=== PATIENT | male | born 1985 | race African-American/Black ===

== ENCOUNTER 2018-04-20 13:10 | Emergency (ER) | payer OTHER ==
--- NOTE | 2018-04-20 15:58 | ER Document Report ---
ED Extremity Problem, Lower - General Mode of Arrival: Ambulatory Information source: Patient TRAVEL OUTSIDE OF THE [place] IN LAST 30 DAYS: No - General Chief Complaint: Leg Pain Stated Complaint: LEG PAIN Time Seen by Provider: 04/20/18 15:49 Notes: Patient is a 32-year-old female who presents to the emergency department today with complaints of left medial calf pain. Patient was at the [facility] and was sent here for an I&D however this area has been there for 2-1/2 months after a trauma (falling through porch). Patient denies fevers. (ABIOLA HEATH) - Related Data Allergies/Adverse Reactions: No Known Allergies Allergy (Verified 04/20/18 13:11) Past Medical History - General Information source: Patient - Social History Smoking Status: Never Smoker Cigarette use (# per day): No Chew tobacco use (# tins/day): No Frequency of alcohol use: Occasional Drug Abuse: None Lives with: Family Family History: Reviewed & Not Pertinent Patient has suicidal ideation: No Patient has homicidal ideation: No - Medical History Medical History: Negative Renal/ Medical History: Denies: Hx Peritoneal Dialysis Surgical Hx: Negative Review of Systems - Review of Systems Constitutional: No symptoms reported EENT: No symptoms reported Cardiovascular: No symptoms reported Respiratory: No symptoms reported Gastrointestinal: No symptoms reported Genitourinary: No symptoms reported Male Genitourinary: No symptoms reported Musculoskeletal: See HPI, Leg swelling - left calf Skin: No symptoms reported Hematologic/Lymphatic: No symptoms reported Neurological/Psychological: No symptoms reported -: Yes All other systems reviewed and negative Physical Exam - Vital signs Vitals: Temp Pulse Resp BP Pulse Ox 99.1 F 84 18 140/89 H 96 04/20/18 13:15 04/20/18 13:15 04/20/18 13:15 04/20/18 13:15 04/20/18 13:15 - Notes Notes: Physical Exam: General: Alert, appears well. HEENT: Normocephalic. Atraumatic. PERRLA. Extraocular movements intact. Oropharynx clear. Neck: Supple. Respiratory: No respiratory distress. Abdominal: Normal Inspection. No distension. Extremities: Left medial calf tenderness with palpation with small area of induration. No warmth or abscess formation. Neurological: Normal cognition. AAOx4. Normal speech. Psychological: Normal affect. Normal Mood. Skin: Warm. Dry. Normal color. (ABIOLA HEATH) Course - Re-evaluation Re-evalutation: 04/20/18 18:56 Patient's ultrasound shows hyperdynamic soft tissue area that most likely present scar tissue and which would be consistent with patient's history and physical. Will provide orthopedic referral. Anti-inflammatories provided (LISBET CRAIG) - Vital Signs Vital signs: Temp Pulse Resp BP Pulse Ox 99.1 F 72 18 121/67 100 04/20/18 13:15 04/20/18 19:42 04/20/18 19:42 04/20/18 19:42 04/20/18 19:42 Discharge - Discharge Clinical Impression: post trauma scar tissue of left calf Condition: Good Disposition: HOME, SELF-CARE Prescriptions: Naproxen 500 mg PO BID PRN #20 tablet PRN Reason: Referrals: CHRISTIANO SHANKAR DO [ACTIVE STAFF] - Follow up in 3-5 days Scribe Attestation: 04/24/18 14:58 I personally performed the services described documentation, reviewed and edited the documentation which was dictated to describe my presence, and it accurately records my words and actions. (LISBET CRAIG) Scribe Documentation - Scribe Written by Scribe:: Jacquelin Peña, 04/20/2018 1336 acting as scribe for :: Patric
--- NOTE | 2018-04-20 16:20 | RADIOLOGY REPORT (SQ) ---
EXAM DESCRIPTION: TIBIA FIBULA LEFT COMPLETED DATE/TIME: 04/20/2018 4:09 pm REASON FOR STUDY: leg knot COMPARISON: None. NUMBER OF VIEWS: Two views. TECHNIQUE: Two radiographic images acquired of the left tibia and fibula to include the knee and ank le in at least one projection. LIMITATIONS: None. FINDINGS: MINERALIZATION: Normal. BONES: No acute fracture or dislocation. No worrisome bone lesions. SOFT TISSUES: No obvious swelling or foreign body. OTHER: No other significant finding. IMPRESSION: NEGATIVE STUDY OF THE LEFT TIBIA AND FIBULA. NO RADIOGRAPHIC EVIDENCE OF ACUTE INJURY. TECHNICAL DOCUMENTATION: JOB ID: [id number] [employer]- All Rights Reserved Reading location - IP/workstation name: [email or web address]
--- NOTE | 2018-04-20 18:36 | RADIOLOGY REPORT (SQ) ---
EXAM DESCRIPTION: U/S EXTREMITY NONVASCULAR LTD COMPLETED DATE/TIME: 04/20/2018 6:19 pm REASON FOR STUDY: leg trauma, eval LLE calf muscle and enduration COMPARISON: None. TECHNIQUE: Dynamic and static grayscale images acquired of the localized site of clinical concern an d recorded on PACS. Additional selected color Doppler and spectral images recorded. SITE OF CONCERN: Left lower extremity calf LIMITATIONS: None. FINDINGS: SKIN AND SUBCUTANEOUS TISSUES: Small focal area of echo alteration measuring 1.6 x 1.2 x 0.6 cm that probably represents scar tissue. No definite acute findings. No hematoma or other postt raumatic change. DEEP SOFT TISSUES/MUSCLES: No masses. No fluid collections. No edema. VASCULAR: No increased or decreased vascularity. No occlusions. OTHER: No other significant finding. IMPRESSION: Small area of echo alteration that probably represents scar tissue. No acute findings. TECHNICAL DOCUMENTATION: JOB ID: [id number] [employer]- All Rights Reserved Reading location - IP/workstation name: [email or web address]
[2018-04-20 19:44] VITALS: BP 121/67
== END 2018-04-20 19:42 | disposition home or self-care (01) ==
LOC: ER 13:10
DX: M79.605 Pain in left leg (principal); Z87.828 Personal history of other (healed) physical injury and trauma
CPT/HCPCS: 76882; 99283

== ENCOUNTER 2019-03-20 21:05 | Observation (INO) | payer OTHER ==
[2019-03-20 22:24] LABS: ABSOLUTE BASOPHILS # (AUTO) 0.1 10^3/uL (0.0-0.2); ABSOLUTE EOSINOPHILS # (AUTO) 0.1 10^3/uL (0.0-0.6); ABSOLUTE LYMPHOCYTES (AUTO) 3.6 10^3/uL (0.5-4.7); ABSOLUTE MONOCYTES (AUTO) 1.2 10^3/uL (0.1-1.4); ABSOLUTE NEUT (AUTO) 9.1 10^3/uL (1.7-8.2); BASOPHILS % (AUTO) 0.4 % (0-2); EOSINOPHILS % (AUTO) 0.4 % (0-6); HEMATOCRIT 43.1 % (37.9-51.0); HEMOGLOBIN 14.2 g/dL (13.5-17.0); LYMPHOCYTES % (AUTO) 25.6 % (13-45); MEAN CORPUSCULAR HEMOGLOBIN 26.2 pg (27.0-33.4); MEAN CORPUSCULAR VOLUME 80 fl (80-97); MONOCYTES % (AUTO) 8.7 % (3-13); PLATELET COUNT 220 10^3/uL (150-450); RED BLOOD COUNT 5.42 10^6/uL (4.35-5.55); RED CELL DISTRIBUTION WIDTH 14.1 % (11.5-14.0); SEGMENTED NEUTROPHILS % (AUTO) 64.9 % (42-78); TOTAL CELLS COUNTED % (AUTO) 100 %; WHITE BLOOD COUNT 14.1 10^3/uL (4.0-10.5)
[2019-03-20 22:39] LABS: ALANINE AMINOTRANSFERASE 42 U/L (21-72); ALKALINE PHOSPHATASE 57 U/L (38-126); ANION GAP 11 (5-19); ASPARTATE AMINO TRANSFERASE 35 U/L (17-59); BILIRUBIN,DIRECT 0.2 mg/dL (0.0-0.4); BILIRUBIN,TOTAL 0.5 mg/dL (0.2-1.3); BLOOD UREA NITROGEN 11 mg/dL (7-20); CALCIUM 9.5 mg/dL (8.4-10.2); CARBON DIOXIDE 25 mmol/L (22-30); CHLORIDE 105 mmol/L (98-107); GLUCOSE 108 mg/dL (75-110); LIPASE 59.3 U/L (23-300); POTASSIUM 3.8 mmol/L (3.6-5.0); TOTAL PROTEIN 6.9 g/dL (6.3-8.2)
[2019-03-20 22:56] LABS: APPEARANCE,URINE CLEAR; BILIRUBIN,URINE NEGATIVE (NEGATIVE); COLOR,URINE YELLOW; GLUCOSE, URINE NEGATIVE (NEGATIVE); KETONES,URINE NEGATIVE (NEGATIVE); LEUKOCYTE ESTERASE,URINE NEGATIVE (NEGATIVE); NITRITE,URINE NEGATIVE (NEGATIVE); PROTEIN,URINE NEGATIVE (NEGATIVE); URINE SPECIFIC GRAVITY 1.013; UROBILINOGEN,URINE NEGATIVE mg/dL (<2.0)
--- NOTE | 2019-03-21 00:43 | RADIOLOGY REPORT (SQ) ---
CT ABDOMEN PELVIS WITH IV CONTRAST HISTORY: Abdominal pain. COMPARISON: None. TECHNIQUE: CT scan of the abdomen and pelvis was performed with IV contrast. This exam was performed according to our departmental dose-optimization program, which includes automated exposure control, adjustment of the mA and/or kV according to patient size and/or use of iterative reconstruction technique. FINDINGS: The lung bases are clear. No pleural or pericardial effusions. There is no hiatal hernia. The liver, spleen, pancreas, gallbladder, adrenal glands, and kidneys are unremarkable. No urinary stones are seen. The pelvic organs are also unremarkable. The appendix is dilated and fluid-filled measuring 8 mm with mild surrounding inflammatory stranding. No free air or abscess is seen. No small bowel obstruction. There is no evidence of diverticulitis. No intraperitoneal free fluid or free air is identified. The aorta is normal caliber. No acute osseous findings are appreciated. There is no body wall hernia. IMPRESSION: Findings suggesting acute appendicitis without perforation or abscess.
[2019-03-21] MEDS ORDERED: NORMAL SALINE 1000 ML 1,000 ML IV ONE (00:48)
[2019-03-21] MEDS ORDERED: KETOROLAC TROMETHAMINE INJ/PF 30 MG/1 ML SDV IV ONE (00:49)
[2019-03-21] MEDS ORDERED: MORPHINE SULFATE 10 MG/ML INJ IV PRN ×3 (00:49→07:40)
[2019-03-21] MEDS ORDERED: PIPERACILLIN/TAZOBACTAM 3.375 GM VIAL IV ONE ×2 (00:49→05:56)
[2019-03-21] MEDS ORDERED: DEXTROSE 5%-LACTATED RINGERS 1,000 ML IV PRN (00:52)
[2019-03-21] MEDS ORDERED: ONDANSETRON HCL INJ/PF 4 MG/2 ML SDV IV ONE (00:52)
[2019-03-21] MEDS ORDERED: ONDANSETRON HCL INJ/PF 4 MG/2 ML SDV IV PRN ×2 (00:52→07:40)
--- NOTE | 2019-03-21 00:53 | ER Document Report ---
ED General - General Chief Complaint: Abdominal Pain Stated Complaint: RIGHT LOWER ABDOMINAL PAIN Time Seen by Provider: 03/20/19 23:29 Notes: Patient is a 33-year-old male with a past medical history of morbid obesity, no chronic medical problems and no prior abdominal surgical history who presents with approximately 16 hours of progressively worsening pain to his right lower abdomen. States the pain started shortly after waking up this morning and became progressively worse throughout the day. He currently reports that it is a throbbing, aching, constant pain to the right lower abdomen. Worsened by movement. Holding the right abdomen still improves the pain. Does arrive the pain is being severe. Notes associated nausea but no vomiting. Has not yet had a fever. Does note that he has anorexia. Never has had similar symptoms in the past. Has not seen his primary care physician regarding today's concerns. TRAVEL OUTSIDE OF THE [place] IN LAST 30 DAYS: No - Related Data Allergies/Adverse Reactions: No Known Allergies Allergy (Verified 04/20/18 13:11) Past Medical History - General Information source: Patient - Social History Smoking Status: Never Smoker Frequency of alcohol use: Occasional Drug Abuse: None Family History: Reviewed & Not Pertinent Patient has suicidal ideation: No Patient has homicidal ideation: No Renal/ Medical History: Denies: Hx Peritoneal Dialysis Review of Systems - Review of Systems Notes: Constitutional: Negative for fever. HENT: Negative for sore throat. Eyes: Negative for visual changes. Cardiovascular: Negative for chest pain. Respiratory: Negative for shortness of breath. Gastrointestinal: Positive for lower abdominal pain Genitourinary: Negative for dysuria. Musculoskeletal: Negative for back pain. Skin: Negative for rash. Neurological: Negative for headaches, weakness or numbness. 10 point ROS negative except as marked above and in HPI. Physical Exam - Vital signs Vitals: Temp Pulse Resp BP Pulse Ox 99.7 F 93 18 146/78 H 98 03/20/19 21:15 03/20/19 21:15 03/20/19 21:15 03/20/19 21:15 03/20/19 21:15 Interpretation: Hypertensive Notes: PHYSICAL EXAMINATION: GENERAL: Appears moderately uncomfortable but in no acute distress HEAD: Atraumatic, normocephalic. EYES: Pupils equal round and reactive to light, extraocular movements intact, sclera anicteric, conjunctiva are normal. ENT: nares patent, oropharynx clear without exudates. Moderately dry mucous membranes. NECK: Normal range of motion, supple without lymphadenopathy LUNGS: Breath sounds clear to auscultation bilaterally and equal. No wheezes rales or rhonchi. HEART: Regular rate and rhythm without murmurs ABDOMEN: Soft, focal tenderness to the right lower quadrant with some voluntary guarding and mild rebound tenderness. No other localized areas of tenderness. Normoactive bowel sounds. EXTREMITIES: Normal range of motion, no pitting or edema. No cyanosis. NEUROLOGICAL: No focal neurological deficits. Moves all extremities spontaneously and on command. PSYCH: Normal mood, normal affect. SKIN: Warm, Dry, normal turgor, no rashes or lesions noted. Course - Re-evaluation Re-evalutation: 03/21/19 00:51 Patient presents with an exam and history suggestive of acute appendicitis. F ocal tenderness noted to the right lower quadrant with rebound. Patient's white blood cell count is elevated at 14.1. I therefore proceeded with a CT scan of the abdomen pelvis which is consistent with acute appendicitis. I did discuss with the surgeon on-call Dr. Velasquez who has accepted the patient for hospitalization. Last p.o. intake at 1600. Patient has been made n.p.o. here in the emergency department. He has received IV fluids, pain control, antiemetics and Zosyn. - Vital Signs Vital signs: Temp Pulse Resp BP Pulse Ox 98.4 F 76 20 127/57 H 96 03/21/19 03:01 03/21/19 03:01 03/21/19 03:01 03/21/19 03:01 03/21/19 03:01 - Laboratory Result Diagrams: 03/20/19 22:05 03/20/19 22:05 Laboratory results interpreted by me: 03/20/19 03/20/19 22:05 22:19 WBC 14.1 H MCH 26.2 L RDW 14.1 H Absolute Neutrophils 9.1 H Urine Blood SMALL H - Diagnostic Test Radiology reviewed: Reports reviewed Discharge - Discharge Clinical Impression: Acute appendicitis Qualifiers: Acute appendicitis type: with localized peritonitis Appendicitis gangrene presence: without gangrene Appendicitis perforation presence: without perforation Appendicitis abscess presence: without abscess Qualified Code(s): K35.30 - Acute appendicitis with localized peritonitis, without perforation or gangrene Condition: Fair Disposition: ADMITTED OBSERVATION Admitting Provider: Surgicalist Unit Admitted: Surgical Floor
[2019-03-21] MEDS ORDERED: PIPERACILLIN/TAZOBACTAM 3.375 GM VIAL IV PRN (01:02)
[2019-03-21] MEDS ORDERED: PIPERACILLIN SODIUM/TAZOBACTAM 3.375 GM in NORMAL SALINE 100 ML IV ONE (02:00)
[2019-03-21] MEDS ORDERED: PIPERACILLIN SODIUM/TAZOBACTAM 3.375 GM in NORMAL SALINE 100 ML IV SCH ×2 (06:00→09:00)
--- NOTE | 2019-03-21 06:11 | PDOC H&P ---
History of Present Illness Admission Date/PCP: 03/21/19 01:02 [facility] Patient complains of: Right lower quadrant abdominal pain History of Present Illness: BRONWYN FLORES is a 33 year old male with a 1 day history of sharp, stabbing right lower quadrant abdominal pain. He reports that it is unrelenting. He rates it a 6 out of 10. He presented to the emergency department for evaluation. A CT scan was performed, confirming acute appendicitis. Patient denies nausea, vomiting, fevers, chills, melena, hematochezia, hematemesis, chest pain, shortness of breath, blurry vision, orthostasis, malaise, fatigue, or symptoms other than abdominal pain. Nothing makes his pain better. Palpation makes it worse. Past Medical History Medical History: None Psychiatric Medical History: Denies: Depression Past Surgical History Past Surgical History: Reports: Other - [place] tooth extraction Social History Smoking Status: Never Smoker Number of Years Smokin Last Time Smoked: 1999 Frequency of Alcohol Use: Social Hx Recreational Drug Use: No Drugs: None Hx Prescription Drug Abuse: No Family History Family History: Reviewed & Not Pertinent Parental Family History Reviewed: Yes Children Family History Reviewed: Yes Sibling(s) Family History Reviewed.: Yes Medication/Allergy Home Medications: No Home Medications 03/21/19 Allergies/Adverse Reactions: No Known Allergies Allergy (Verified 04/20/18 13:11) Review of Systems Constitutional: ABSENT: anorexia, chills, fatigue, fever(s), headache(s), night sweats, weakness Eyes: ABSENT: visual disturbances Ears: ABSENT: hearing changes Nose, Mouth, and Throat: ABSENT: mouth pain, sore throat Cardiovascular: ABSENT: chest pain, dyspnea on exertion Respiratory: ABSENT: cough Gastrointestinal: PRESENT: abdominal pain. ABSENT: hematemesis, hematochezia, melena, nausea, vomiting Genitourinary: ABSENT: dysuria Musculoskeletal: ABSENT: back pain Integumentary: ABSENT: pruritus, rash Neurological: ABSENT: confusion, convulsions, dizziness Psychiatric: ABSENT: anxiety, depression Endocrine: ABSENT: cold intolerance, heat intolerance Hematologic/Lymphatic: ABSENT: easy bleeding, easy bruising Physical Exam Vital Signs: Temp Pulse Resp BP Pulse Ox 98.4 F 76 20 127/57 H 96 03/21/19 03:01 03/21/19 03:01 03/21/19 03:01 03/21/19 03:01 03/21/19 03:01 Intake & Output 03/19/19 03/20/19 03/21/19 06:59 06:59 06:59 Intake Total 1000 Balance 1000 Weight 135.2 kg General appearance: PRESENT: no acute distress, cooperative Head exam: PRESENT: atraumatic, normocephalic Eye exam: PRESENT: EOMI, PERRLA. ABSENT: scleral icterus Mouth exam: PRESENT: moist, neck supple Teeth exam: ABSENT: poor dentation Neck exam: ABSENT: meningismus, tenderness, thyromegaly, tracheal deviation Respiratory exam: PRESENT: clear to auscultation carlos enrique, unlabored. ABSENT: chest wall tenderness, tachypnea, wheezes Cardiovascular exam: PRESENT: RRR Pulses: PRESENT: normal radial pulses Vascular exam: PRESENT: normal capillary refill. ABSENT: pallor GI/Abdominal exam: PRESENT: guarding - Voluntary guarding, right lower quadrant., soft, tenderness - Right lower quadrant. ABSENT: distended, rigid Rectal exam: PRESENT: deferred Extremities exam: ABSENT: clubbing Musculoskeletal exam: ABSENT: deformity Neurological exam: PRESENT: alert, awake, oriented to person, oriented to place, oriented to time, oriented to situation, CN II-XII grossly intact. ABSENT: motor sensory deficit Psychiatric exam: ABSENT: agitated, anxious, depressed Focused psych exam: ABSENT: delusional Skin exam: ABSENT: cyanosis, erythema, jaundice Results Laboratory Results: 03/20/19 22:05 03/20/19 22:05 03/20/19 03/20/19 03/20/19 22:05 22:05 22:19 WBC 14.1 H RBC 5.42 Hgb 14.2 Hct 43.1 MCV 80 MCH 26.2 L MCHC 33.0 RDW 14.1 H Plt Count 220 Seg Neutrophils % 64.9 Lymphocytes % 25.6 Monocytes % 8.7 Eosinophils % 0.4 Basophils % 0.4 Absolute Neutrophils 9.1 H Absolute Lymphocytes 3.6 Absolute Monocytes 1.2 Absolute Eosinophils 0.1 Absolute Basophils 0.1 Sodium 141.0 Potassium 3.8 Chloride 105 Carbon Dioxide 25 Anion Gap 11 BUN 11 Creatinine 1.20 Est GFR ( Amer) > 60 Est GFR (Non-Af Amer) > 60 Glucose 108 Calcium 9.5 Total Bilirubin 0.5 AST 35 ALT 42 Alkaline Phosphatase 57 Total Protein 6.9 Albumin 4.0 Lipase 59.3 Urine Color YELLOW Urine Appearance CLEAR Urine pH 7.0 Ur Specific [place] 1.013 Urine Protein NEGATIVE Urine Glucose (UA) NEGATIVE Urine Ketones NEGATIVE Urine Blood SMALL H Urine Nitrite NEGATIVE Ur Leukocyte Esterase NEGATIVE Urine WBC (Auto) 1 Urine RBC (Auto) 2 Impressions: Abdomen/Pelvis CT 03/20/19 23:29 IMPRESSION: Findings suggesting acute appendicitis without perforation or abscess. Assessment & Plan - Diagnosis (1) Acute appendicitis Qualifiers: Acute appendicitis type: with localized peritonitis Appendicitis gangrene presence: without gangrene Appendicitis perforation presence: without perforation Appendicitis abscess presence: without abscess Qualified Code( s): K35.30 - Acute appendicitis with localized peritonitis, without perforation or gangrene Is this a current diagnosis for this admission?: Yes - Plan Summary Plan Summary: This is a 33-year-old male with history, physical exam findings, laboratory evaluation, and imaging studies consistent with acute appendicitis. I have recommended surgical intervention for him. The patient has agreed. Plan for laparoscopic appendectomy. Risks/benefits discussed, informed consent obtained, and all questions answered.
[2019-03-21] MEDS ORDERED: KETOROLAC TROMETHAMINE 60 MG/2 ML SDV ONE (06:47)
[2019-03-21] MEDS ORDERED: MIDAZOLAM 2 MG/2 ML INJ ONE (06:47)
[2019-03-21] MEDS ORDERED: ONDANSETRON HCL INJ/PF 4 MG/2 ML SDV ONE (06:47)
[2019-03-21] MEDS ORDERED: DEXAMETHASONE SOD PHOSPHATE INJ 4 MG/1 ML VIAL ONE (06:47)
[2019-03-21] MEDS ORDERED: FENTANYL CITRATE INJ/PF 100 MCG/2 ML AMPUL ONE (06:47)
[2019-03-21] MEDS ORDERED: PROPOFOL INJ 200 MG/20 ML VIAL IV ONE (06:48)
[2019-03-21] MEDS ORDERED: ACETAMINOPHEN 1,000 MG/100 ML RTUPB IV ONE (06:48)
[2019-03-21] MEDS ORDERED: LIDOCAINE 1% INJ-PF (10 MG/ML) 30 ML SDV ONE (06:48)
[2019-03-21] MEDS ORDERED: BUPIVACAINE HCL 0.25 % INJ/PF (2.5 MG/1 ML) 30 ML VIAL ONE (06:58)
[2019-03-21] MEDS ORDERED: FENTANYL CITRATE INJ/PF 100 MCG/2 ML AMPUL IV PRN ×3 (07:40)
[2019-03-21] MEDS ORDERED: MEPERIDINE HCL/PF INJ 25 MG/1 ML DISP.SYRIN IV PRN (07:40)
[2019-03-21] MEDS ORDERED: PROMETHAZINE HCL INJ 25 MG/1 ML VIAL IV PRN ×2 (07:40)
[2019-03-21] MEDS ORDERED: DIPHENHYDRAMINE HCL 50 MG/ML VIAL IV PRN (07:40)
[2019-03-21] MEDS ORDERED: OXYCODONE-ACETAMINOPHEN 5-325 MG TABLET PO PRN ×2 (07:40)
--- NOTE | 2019-03-21 08:13 | Operative Report ---
Nonrecallable Operative Report DATE OF SURGERY: 03/21/19 PREOPERATIVE DIAGNOSIS: Acute appendicitis POSTOPERATIVE DIAGNOSIS: Acute nonperforated appendicitis OPERATION: Laparoscopic appendectomy SURGEON: ADRIENNE CHINCHILLA ANESTHESIA: GA TISSUE REMOVED OR ALTERED: Appendix COMPLICATIONS: None apparent ESTIMATED BLOOD LOSS: Minimal PROCEDURE: Drains/implants: None. Procedure in detail: After informed consent was obtained, the patient was brought into the operating room and laid in the supine position. The area of t he abdomen was prepped and draped in a normal sterile fashion. A supraumbilical incision was created with a 15 blade scalpel. Dissection was carried through the subcutaneous tissue using sharp and blunt dissection. The linea alba fascia was incised sharply, the abdomen was entered sharply. The balloon trocar was inserted, and pneumoperitoneum was achieved. A suprapubic 5 mm port was placed under direct laparoscopic visualization. A left lower quadrant 5 mm trocar was placed in similar fashion. Atraumatic graspers were placed through the 5 mm ports. The appendix was identified. It was inflamed and injected, however it did not have signs of perforation. The appendix was retracted anteriorly. The mesoappendix was taken down using the harmonic scalpel. PDS Endoloops were secured around the base of the appendix x2. The appendix was then amputated using the harmonic scalpel. The appendix was placed into an Endo Catch bag and pulled out the umbilicus. The camera was reinserted and the right lower quadrant was inspected. The right lower quadrant was found to be hemostatic. A small amount of inflammatory fluid was suctioned from the right lower quadrant. No irrigation was used. At this time the 5 mm ports were removed under direct laparoscopic visualization. The supraumbilical trocar was removed, and pneumoperitoneum was relieved. The supraumbilical fascia was closed using 0 Vicryl suture in [id number] fashion. The overlying skin was closed using 4-0 Vicryl Rapide suture in subcuticular fashion. Dressings were placed, and the procedure was concluded. All sponge, instrument, needle counts were correct x2. Condition: Stable.
[2019-03-21] MEDS ORDERED: HYDROCODONE/ACETAMINOPHEN 5-325 MG TABLET PO PRN (09:57)
[2019-03-21] MEDS ORDERED: IBUPROFEN 800 MG TABLET PO SCH (12:00)
[2019-03-21] MEDS ORDERED: SUCCINYLCHOLINE CHLORIDE INJ 200 MG/10 ML VIAL ONE (13:26)
--- NOTE | 2019-03-21 15:40 | Progress Note ---
Provider Note Provider Note: Patient seen and examined. No c/o PE HEENT= bilateral conjuntival hemorrhage Lungs CTA Heart RRR Abdomen= obese, soft, positive BD A/P Stable postop after lap appy Patient can go home tonight Regular diet Tylenol over the counter as needed for pain Resume all activities tomorrow No straining or lifting > 5# x 2 weeks Can shower immediately Bath allowed in 2 weeks
[2019-03-21 17:17] VITALS: BP 131/63
--- NOTE | 2019-03-22 13:38 | DISCHARGE SUMMARY E ---
Discharge Summary NAME: BRONWYN FLORES : 1985 AGE: 33Y ADMITTED: 03/21/2019 DISCHARGED: 03/21/2019 FINAL DIAGNOSIS: Acute appendicitis, uncomplicated. PROCEDURE: 03/21/2019, uncomplicated laparoscopic appendectomy by Dr. Velasquez. COMPLICATIONS: None. HOSPITAL COURSE: This is a morbidly obese 33-year-old -Chinese male who presented to the emergency room complaining of abdominal pain in the very trekking guide of 03/21/2019. The patient was taken to surgery on the same day and underwent uneventful laparoscopic appendectomy. The patient was transferred to the floor. On the floor, the patient's vital signs remained stable. His physical exam was unremarkable with lungs clear, abdomen soft, heart regular rate and rhythm. The patient presented with bilateral subconjuntival hemorrhage most likely due to straining and coughing. The patient presented with the same hust after extubation. Otherwise, the patient had no complaints, tolerating p.o. well. His physical exam was unremarkable. The patient was discharged to go home on 03/21/2019. He was given a followup appointment with Dr. Velasquez in 2 weeks. Regular diet as tolerated with no straining or lifting more than 10 pounds for about 2 weeks. The patient may shower immediately and bathe in 2 weeks. No wound care needed. The patient was prescribed Tylenol over the counter 1 tab every 4-6 hours as needed for pain. MiraLax or over the counter prune juice or Milk of Magnesia as needed for constipation. DICTATING PHYSICIAN: HEATHER ATWOOD M.D. [id number] PHY#: [id number] ID: [id number] JOB#: [id number] ACCT: [id number] cc:HEATHER ATWOOD M.D., E. REdwina > [facility]
== END 2019-03-21 17:37 | disposition home or self-care (01) ==
LOC: ER 21:05 → EH 03-21 01:02 → 2N 03-21 02:52
PROVIDERS: ATTEND Surgery
PROC: 0DTJ4ZZ Resection of Appendix, Percutaneous Endoscopic Approach (ICD-10-PCS; principal; 2019-03-21 07:30)
DX: K35.30 Acute appendicitis with localized peritonitis, without perforation or gangrene (principal)
CPT/HCPCS: 36415; 74177; 80053; 81001; 83690; 840; 85025; 88304; 96365; 96375; 99285; G0378; J0131; J0330; J1100; J1885; J2250; J2270; J2405; J2543; J2704; J3010; J3490; J7030; J7050; J7121

== ENCOUNTER 2020-02-16 18:58 | Emergency (ER) | payer OTHER ==
[2020-02-16] MEDS ORDERED: IBUPROFEN 800 MG TABLET PO ONE (19:09)
--- NOTE | 2020-02-16 19:11 | ER Document Report ---
ED Medical Screen (RME) - General Chief Complaint: Leg Pain Stated Complaint: LEG PAIN [facility] Provider[facility] [Primary [facility]] - Follow up as needed Notes: Patient is a 34-year-old -[place] Citizen male with no reported past medical history presents the emergency department the chief complaint of right calf pain after an injury that occurred while playing football with his son prior to arrival. States he felt a pop in the right calf in the area is tender since that time. Denies numbness tingling or weakness. I have treated and performed a rapid initial assessment of this patient. A comprehensive ED assessment and evaluation of the patient, analysis of test results and completion of medical decision making process will be conducted by additional ED providers. PHYSICAL EXAMINATION: GENERAL: Well-appearing, well-nourished and in no acute distress. A&Ox4. Answers questions appropriately. Extremity: Tender to the distal right calf the area appears to be swollen mildly. No obvious deformities. The right Achilles is intact to palpation and nontender. He has some decreased plantar flexion of the right foot. Will be further evaluated in the back on a stretcher. TRAVEL OUTSIDE OF THE [place] IN LAST 30 DAYS: No - Related Data Allergies/Adverse Reactions: No Known Allergies Allergy (Verified 04/20/18 13:11) Past Medical History Renal/ Medical History: Denies: Hx Peritoneal Dialysis Psychiatric Medical History: Denies: Hx Depression Past Surgical History: Reports: Other - [place] tooth extraction Physical Exam - Vital signs Vitals: Temp Pulse Resp BP Pulse Ox 98.9 F 99 18 164/81 H 97 02/16/20 19:02/16/20 19:01 02/16/20 19:01 02/16/20 19:01 02/16/20 19:01 Course - Vital Signs Vital signs: Temp Pulse Resp BP Pulse Ox 98.9 F 99 18 164/81 H 97 02/16/20 19:01 02/16/20 19:01 02/16/20 19:01 02/16/20 19:01 02/16/20 19:01 Doctor's Discharge - Discharge Referrals: [facility] [Primary Care Provider] - Follow up as needed
--- NOTE | 2020-02-16 20:30 | ER Document Report ---
HPI - HPI Time Seen by Provider: 02/16/20 20:02 Pain Level: 3 Context: Patient is a 34-year-old male that comes emergency department for chief complaint of injury to his right leg/calf. He states this happened 2 days ago, he states that he did a quick pivot running a slant for football, he felt a sharp pain and pop in his calf, he states he has had swelling and pain with walking since that time. He denies numbness, weakness, knee pain, hip pain, ankle pain. He does not take any daily medications. He denies any other complaints or any other injuries. No personal family history of blood clot, he does not smoke, no recent travel. - CONSTITUTIONAL Constitutional: DENIES: Fever, Chills Past Medical History - General Information source: Patient - Social History Smoking Status: Never Smoker Chew tobacco use (# tins/day): No Frequency of alcohol use: None Drug Abuse: None Lives with: Family Family History: Reviewed & Not Pertinent Patient has suicidal ideation: No Patient has homicidal ideation: No - Medical History Medical History: Negative Renal/ Medical History: Denies: Hx Peritoneal Dialysis Psychiatric Medical History: Denies: Hx Depression Past Surgical History: Reports: Hx Appendectomy, Other - [place] tooth extraction Vertical Provider Document - CONSTITUTIONAL General Appearance: WD/WN, No Apparent Distress - INFECTION CONTROL TRAVEL OUTSIDE OF THE [place] IN LAST 30 DAYS: No - HEENT HEENT: Atraumatic, Normal ENT Exam, Normocephalic - NECK Neck: Normal Inspection - RESPIRATORY Respiratory: Breath Sounds Normal, No Respiratory Distress - CARDIOVASCULAR Cardiovascular: Regular Rate, Regular Rhythm - GI/ABDOMEN Gastrointestinal: Abdomen Soft, Abdomen Non-Tender. negative: Abdomen Tender - BACK Back: Normal Inspection - MUSCULOSKELETAL/EXTREMETIES Musculoskeletal/Extremeties: MAEW, FROM, Tender - Tender over the right inferior calf with some swelling but no ecchymosis, severe tenderness, abnormal heat, induration, fluctuance. Range of motion at the knee is normal, patient is able to perform full range of motion of the ankle, normal Achilles exam. Normal distal neurovascular exam. Normal ankle, knee, hip exams. Unremarkable otherwise. - NEURO Level of Consciousness: Awake, Alert, Appropriate Motor/Sensory: No Motor Deficit, No Sensory Deficit - DERM Integumentary: Warm, Dry, No Rash Course - Re-evaluation Re-evalutation: On exam patient has pain and some slight swelling at the inferior calf of the right leg, there is no erythema, abnormal heat, there is no severe pain suggesting compartment syndrome. Patient has normal pulses, normal sensation, is able to walk with pain but is able to do so. Joints and neurovascular exam unremarkable, lower extremity exam unremarkable otherwise. Patient did have a specific injury leading up to today's symptoms. Based on his location and reported injury I suspect he has a gastrocnemius tear. Patient does not have any significant lower extremity edema, I did discuss potentially performing a Doppler of the lower extremity but this was deferred after discussion. Patient will be treated for what this appears to be, discussed orthopedic follow-ups, expectations, return precautions. Patient states understanding and agreement. Stable and well-appearing at time of discharge. - Vital Signs Vital signs: Temp Pulse Resp BP Pulse Ox 98.9 F 99 18 164/81 H 97 02/16/20 19:01 02/16/20 19:01 02/16/20 19:01 02/16/20 19:01 02/16/20 19:01 Procedures - Immobilization Right leg Pre-Proc Neuro Vasc Exam: Normal Immobilizer type: Kash wrap Performed by: Other - [employer] Post-Proc Neuro Vasc Exam: Normal Alignment checked and good: Yes Discharge - Discharge Clinical Impression: Right calf pain, Right leg swelling Condition: Stable Disposition: HOME, SELF-CARE Additional Instructions: Your evaluation is consistent with a tear/injury of the gastrocnemius muscle, part of the muscle of your calf. This can cause a lot of swelling and pain. I recommend that you elevate this whenever possible, ice the area 3-4 times a day for 10 to 15 minutes, take the prescribed anti-inflammatory, and use the crutches. You can use the wrap as well. Symptoms should gradually resolve and heal. Follow-up with orthopedics referral listed if symptoms do not resolve. Return for any concerning or worsening symptoms including developing severe worsening pain, numbness, redness, fever, or any other concerning or worsening symptoms. Prescriptions: Naproxen 500 mg PO BID PRN #20 tablet PRN Reason: Forms: Elevated Blood Pressure Referrals: [facility] [Primary Care Provider] - Follow up in 1 week DANIELE MENCHACA MD [ACTIVE STAFF] - Follow up in 1 week
[2020-02-16 20:53] VITALS: BP 154/77
== END 2020-02-16 20:48 | disposition home or self-care (01) ==
LOC: ER 18:58
DX: M79.661 Pain in right lower leg (principal); M79.89 Other specified soft tissue disorders; X50.0XXA Overexertion from strenuous movement or load, initial encounter; Y93.61 Activity, american tackle football; Y92.007 Garden or yard of unspecified non-institutional (private) residence as the place of occurrence of the external cause
CPT/HCPCS: 99283

== ENCOUNTER 2020-04-09 10:44 | Emergency (ER) | payer OTHER ==
--- NOTE | 2020-04-09 11:46 | ER Document Report ---
ED Medical Screen (RME) - General Chief Complaint: Leg Pain Stated Complaint: RIGHT LEG PAIN, SWELLING Time Seen by Provider: 04/09/20 11:44 Primary Care Provider: [facility] [Primary Care Provider] - Follow up as needed Mode of Arrival: Ambulatory Information source: Patient Notes: 34-year-old male presented to ED for complaint of bilateral lower extremity swelling edema and pain to the right lower extremity. He states he was seen in January and told he had a pulled muscle and a wrap his legs and use compression hose but the edema has gotten much bigger he now has 3+ pitting in both legs but he has increasing pain in his right leg. Patient is alert oriented respirations regular and unlabored speaking in full sentences. I have greeted and performed a rapid initial assessment of this patient. A comprehensive ED assessment and evaluation of the patient, analysis of test results and completion of medical decision making process will be conducted by an additional ED providers. TRAVEL OUTSIDE OF THE [place] IN LAST 30 DAYS: No - Related Data Allergies/Adverse Reactions: No Known Allergies Allergy (Verified 04/20/18 13:11) Past Medical History Renal/ Medical History: Denies: Hx Peritoneal Dialysis Psychiatric Medical History: Denies: Hx Depression Past Surgical History: Reports: Hx Appendectomy, Other - [place] tooth extraction Physical Exam - Vital signs Vitals: Temp Pulse Resp BP Pulse Ox 98.7 F 85 18 146/85 H 97 04/09/20 10:48 04/09/20 10:48 04/09/20 10:48 04/09/20 10:48 04/09/20 10:48 Course - Vital Signs Vital signs: Temp Pulse Resp BP Pulse Ox 98.7 F 85 18 146/85 H 97 04/09/20 10:48 04/09/20 10:48 04/09/20 10:48 04/09/20 10:48 04/09/20 10:48 Doctor's Discharge - Discharge Referrals: [facility] [Primary Care Provider] - Follow up as needed
[2020-04-09 12:14] LABS: ABSOLUTE BASOPHILS # (AUTO) 0.1 10^3/uL (0.0-0.2); ABSOLUTE EOSINOPHILS # (AUTO) 0.2 10^3/uL (0.0-0.6); ABSOLUTE LYMPHOCYTES (AUTO) 3.1 10^3/uL (0.5-4.7); ABSOLUTE MONOCYTES (AUTO) 0.8 10^3/uL (0.1-1.4); ABSOLUTE NEUT (AUTO) 5.3 10^3/uL (1.7-8.2); BASOPHILS % (AUTO) 0.9 % (0-2); HEMATOCRIT 45.3 % (37.9-51.0); HEMOGLOBIN 15.1 g/dL (13.5-17.0); LYMPHOCYTES % (AUTO) 32.3 % (13-45); MEAN CORPUSCULAR HEMOGLOBIN 26.8 pg (27.0-33.4); MEAN CORPUSCULAR HGB CONC 33.3 g/dL (32.0-36.0); MEAN CORPUSCULAR VOLUME 81 fl (80-97); MONOCYTES % (AUTO) 8.8 % (3-13); PLATELET COUNT 217 10^3/uL (150-450); RED BLOOD COUNT 5.63 10^6/uL (4.35-5.55); RED CELL DISTRIBUTION WIDTH 14.4 % (11.5-14.0); TOTAL CELLS COUNTED % (AUTO) 100 %; WHITE BLOOD COUNT 9.5 10^3/uL (4.0-10.5)
[2020-04-09 12:34] LABS: ALBUMIN 4.1 g/dL (3.5-5.0); ALKALINE PHOSPHATASE 63 U/L (38-126); ANION GAP 8 (5-19); APPEARANCE,URINE CLEAR; ASPARTATE AMINO TRANSFERASE 36 U/L (17-59); BILIRUBIN,TOTAL 0.5 mg/dL (0.2-1.3); BILIRUBIN,URINE NEGATIVE (NEGATIVE); BLOOD UREA NITROGEN 10 mg/dL (7-20); CALCIUM 9.7 mg/dL (8.4-10.2); CARBON DIOXIDE 26 mmol/L (22-30); CHLORIDE 103 mmol/L (98-107); COLOR,URINE YELLOW; GLUCOSE 112 mg/dL (75-110); GLUCOSE, URINE NEGATIVE (NEGATIVE); KETONES,URINE NEGATIVE (NEGATIVE); LEUKOCYTE ESTERASE,URINE NEGATIVE (NEGATIVE); NITRITE,URINE NEGATIVE (NEGATIVE); POTASSIUM 4.3 mmol/L (3.6-5.0); PROTEIN,URINE NEGATIVE (NEGATIVE); URINE SPECIFIC GRAVITY 1.016; UROBILINOGEN,URINE NEGATIVE mg/dL (<2.0)
[2020-04-09 12:45] LABS: NT PRO BNP 14 pg/mL (<125)
[2020-04-09 12:47] LABS: TROPONIN I < 0.012 ng/mL
--- NOTE | 2020-04-09 13:21 | RADIOLOGY REPORT (SQ) ---
EXAM DESCRIPTION: CHEST 2 VIEWS IMAGES COMPLETED DATE/TIME: 04/09/2020 1:06 pm REASON FOR STUDY: Edema both lower extremities COMPARISON: None. EXAM PARAMETERS: NUMBER OF VIEWS: two views TECHNIQUE: Digital Frontal and Lateral radiographic views of the chest acquired. RADIATION DOSE: NA LIMITATIONS: none FINDINGS: LUNGS AND PLEURA: No opacities, masses or pneumothorax. No pleural effusion. MEDIASTINUM AND HILAR STRUCTURES: No masses or contour abnormalities. HEART AND VASCULAR STRUCTURES: Heart normal size. No evidence for failure. BONES: No acute findings. HARDWARE: None in the chest. OTHER: No other significant finding. IMPRESSION: NO ACUTE RADIOGRAPHIC FINDING IN THE CHEST. TECHNICAL DOCUMENTATION: JOB ID: [id number] 2010 [employer]- All Rights Reserved Reading location - IP/workstation name: [email or web address]
--- NOTE | 2020-04-09 14:29 | ER Document Report ---
ED General - General Chief Complaint: right leg Stated Complaint: RIGHT LEG PAIN, SWELLING Time Seen by Provider: 04/09/20 11:44 Primary Care Provider: [facility] [Primary Care Provider] - Follow up as needed Mode of Arrival: Ambulatory Notes: HPI: Patient is a 34-year-old male who presents today with what he states was in January an injury playing football to his right calf. He states he was told it was a muscle "strain". He was told to ice wrap and elevate his leg which he has. He states the pain has improved as has the edema but now the patient over the last week or 2 has had edema to both legs. He denies any pain currently. He denies any chest pain, shortness of breath, fevers, or vomiting. No history of heart failure. ROS: See HPI All other review of systems reviewed and otherwise negative Reviewed vital signs and nursing note as charted by RN. PHYSICAL EXAM: CONSTITUTIONAL: Alert and oriented and responds appropriately to questions. Well-appearing; well-nourished HEAD: Normocephalic; atraumatic NECK: Supple without meningismus; non-tender; no cervical lymphadenopathy, no masses CARD: Regular rate and rhythm; no murmurs; symmetric distal pulses RESP: Normal chest excursion without splinting or tachypnea; breath sounds clear and equal bilaterally; no wheezes, no rhonchi, no rales ABD/GI: Normal bowel sounds; non-distended; soft, non-tender; no palpable organomegaly or masses BACK: The back appears normal and is non-tender to palpation EXT: Normal ROM in all joints; non-tender to palpation; very minimal 1+ pitting edema to bilateral lower shins SKIN: No acute lesions noted NEURO: CN 2-12 intact; 5/5 bilateral upper and lower extremity strength with sensation intact to light touch PSYCH: The patient's mood and manner are appropriate. Grooming and personal hygiene are appropriate. TRAVEL OUTSIDE OF THE [place] IN LAST 30 DAYS: No - Related Data Allergies/Adverse Reactions: No Known Allergies Allergy (Verified 04/09/20 11:46) Past Medical History - General Information source: Patient - Social History Smoking Status: Never Smoker Chew tobacco use (# tins/day): No Frequency of alcohol use: None Drug Abuse: None Family History: Reviewed & Not Pertinent Patient has homicidal ideation: No Renal/ Medical History: Denies: Hx Peritoneal Dialysis Psychiatric Medical History: Denies: Hx Depression Past Surgical History: Reports: Hx Appendectomy, Other - [place] tooth extraction Physical Exam - Vital signs Vitals: Temp Pulse Resp BP Pulse Ox 98.7 F 85 18 146/85 H 97 04/09/20 10:48 04/09/20 10:48 04/09/20 10:48 04/09/20 10:48 04/09/20 10:48 Course - Re-evaluation Re-evalutation: Given the above history and physical examination, bilateral Doppler duplex ultrasound was ordered in triage as well as a cardiac panel, x-ray of the chest, and EKG. Patient has no chest pain or shortness of breath. He is not tachycardic or hypoxic. I do believe pulmonary embolism and aortic dissection to be extremely unlikely. EKG shows heart of 78, normal sinus rhythm, normal axis, no ST elevation or depression. Inverted T waves in lead III. 04/09/20 14:28 X-ray of the chest shows no obvious cardiomegaly. Labs as recorded. 04/09/20 14:28 Albumin, BNP, and troponin as recorded. Awaiting Doppler ultrasound. If negative patient will be discharged home with strict return precautions with follow-up with the primary care physician with possibly initiation of a low-dose diuretic. 04/09/20 15:13 Ultrasound shows no obvious blood clots. Patient's vital signs are stable. No chest pain or shortness of breath. I had a long discussion with the patient regarding starting or holding diuretics at this time. Patient is overweight and understands he does need to exercise. He does have a primary care physician with the [facility]. Using shared decision making we have decided to hold on diuretics at this time and have the patient follow-up with the primary care physician with strict return precautions and leg elevation at home. - Vital Signs Vital signs: Temp Pulse Resp BP Pulse Ox 98.7 F 85 18 146/85 H 97 04/09/20 11:43 04/09/20 10:48 04/09/20 10:48 04/09/20 10:48 04/09/20 10:48 - Laboratory Result Diagrams: 04/09/20 12:00 04/09/20 12:00 Laboratory results interpreted by me: 04/09/20 04/09/20 12:00 12:00 RBC 5.63 H MCH 26.8 L RDW 14.4 H Sodium 136.6 L Glucose 112 H Discharge - Discharge Clinical Impression: Lower extremity edema Condition: Good Disposition: HOME, SELF-CARE Additional Instructions: Come back immediately with any shortness of breath, fevers, vomiting, chest pain, increased leg swelling, or any other acute problems. Please make sure that you elevate your legs above the level of your heart when resting. Please follow-up with the primary care physician for reassessment. Referrals: [facility] [Primary Care Provider] - Follow up as needed
--- NOTE | 2020-04-09 14:58 | EKG REPORT ---
SEVERITY:- BORDERLINE ECG - SINUS RHYTHM BORDERLINE T ABNORMALITIES, INFERIOR LEADS : Confirmed by: Maria Fernanda Mederos MD 09-Apr-2020 14:57:23
[2020-04-09 15:32] VITALS: BP 133/90
--- NOTE | 2020-04-09 16:31 | RADIOLOGY REPORT (SQ) ---
EXAM DESCRIPTION: VENOUS BILATERAL LOWER IMAGES COMPLETED DATE/TIME: 04/09/2020 4:19 pm REASON FOR STUDY: Pain edema both lower extremities COMPARISON: None. TECHNIQUE: Dynamic and static romero scale and color images acquired of both lower extremity venous sy stems. Selected spectral images acquired with additional compression and augmentation maneuvers. Imag es stored on PACS. LIMITATIONS: None. FINDINGS: RIGHT LEG COMMON FEMORAL AND FEMORAL: Normal phasicity, compression and augmentation. No visualized echogenic m aterial on romero scale. No defects on color images. POPLITEAL: Normal compression and augmentation. No visualized echogenic material on romero scale. No de fects on color images. CALF VESSELS: Normal compression and augmentation. No visualized echogenic material on romero scale. No defects on color image. GSV AND SSV: Normal compression. No visualized echogenic material on romero scale. No defects on color images. ANY DEEP VENOUS INSUFFICIENCY: No. ANY EVIDENCE OF POPLITEAL CYST: No. OTHER: No other finding. LEFT LEG COMMON FEMORAL AND FEMORAL: Normal phasicity, compression and augmentation. No visualized echogenic m aterial on romero scale. No defects on color images. POPLITEAL: Normal compression and augmentation. No visualized echogenic material on romero scale. No de fects on color images. CALF VESSELS: Normal compression and augmentation. No visualized echogenic material on romero scale. No defects on color images. GSV AND SSV: Normal compression. No visualized echogenic material on romero scale. No defects on color images. ANY DEEP VENOUS INSUFFICIENCY: Not evaluated. ANY EVIDENCE POPLITEAL CYST: No. OTHER: No other finding. IMPRESSION: NO EVIDENCE DVT OR SVT IN EITHER LEG. TECHNICAL DOCUMENTATION: JOB ID: [id number] [employer]- All Rights Reserved Reading location - IP/workstation name: [email or web address]
== END 2020-04-09 15:34 | disposition home or self-care (01) ==
LOC: ER 10:44
DX: R60.0 Localized edema (principal); E66.3 Overweight
CPT/HCPCS: 36415; 71046; 80053; 81001; 83880; 84484; 85025; 93005; 93010; 93970; 99284